=== PATIENT | male | born 1960 | race Caucasian/White ===

== ENCOUNTER 2024-01-08 14:43 | Inpatient (IN) | payer OTHER ==
[~2024-01-08] VITALS: Ht 170.2 cm; Wt 69.4 kg
[2024-01-08 14:30] VITALS: BP 129/78; TEMP 97.8; O2SAT 99
[2024-01-08] MEDS ORDERED: ENOX40DI SQ (15:22)
[2024-01-08] MEDS ORDERED: METF-494 PO (15:22)
[2024-01-08] MEDS ORDERED: ATOR40TA PO (15:22)
[2024-01-08] MEDS ORDERED: ONDANSETRON 4 MG/2 ML VIAL IV PRN (16:00)
[2024-01-08] MEDS ORDERED: ACETAMINOPHEN 325 MG TABLET PO PRN (16:00)
[2024-01-08] MEDS ORDERED: MAGNESIUM HYDROXIDE 30 ML LIQUID UDC PO PRN (16:00)
[2024-01-08] MEDS ORDERED: HYDROCODONE/APAP 5-325MG TABLET PO PRN (16:00)
[2024-01-08 20:14] VITALS: BP 122/72; TEMP 97.7; O2SAT 97
[2024-01-08] MEDS ORDERED: DEXTROSE 50% 50 ML DISP.SYRIN IV PRN (20:30)
[2024-01-08] MEDS: BLOOD SUGAR DIAGNOSTIC 1 EACH STRIP VI SCH (21:00)
[2024-01-08] MEDS: ATORVASTATIN 40 MG TABLET PO SCH (22:03)
[2024-01-08] MEDS: DOCUSATE SODIUM 100 MG CAPSULE PO SCH (22:03)
[2024-01-09] MEDS: HYDROCODONE/APAP 10-325 MG TABLET PO PRN (02:28)
[2024-01-09] MEDS ORDERED: ONDANSETRON 4 MG/2 ML VIAL IV PRN (05:15)
[2024-01-09 06:11] LABS: BASOPHILS # (AUTO) 0.1 K/UL (0.0-0.2); BASOPHILS % (AUTO) 1.2 % (0.0-2.0); EOSINOPHILS # (AUTO) 0.2 K/uL (0.0-0.7); EOSINOPHILS % (AUTO) 3.2 % (0.0-7.0); HEMATOCRIT 33.7 % (36.7-47.1); HEMOGLOBIN 11.9 g/dL (12.5-16.3); LYMPHOCYTES # (AUTO) 1.6 K/uL (0.8-4.8); LYMPHOCYTES % (AUTO) 23.9 % (20.5-51.5); MEAN CORPUSCULAR HEMOGLOBIN 32.3 uug (23.8-33.4); MEAN CORPUSCULAR HGB CONC 35 g/dL (32.5-36.3); MEAN CORPUSCULAR VOLUME 91.2 fL (73.0-96.2); MONOCYTES # (AUTO) 0.6 K/uL (0.1-1.30); MONOCYTES % (AUTO) 9.8 % (0.0-11.0); NEUTROPHILS # (AUTO) 4.1 K/uL (1.8-8.9); NEUTROPHILS % (AUTO) 61.9 % (38.5-71.5); PLATELET COUNT (AUTO) 342 K/uL (152-348); RED CELL DISTRIBUTION WIDTH 12.6 % (12.1-16.2); WHITE BLOOD COUNT (AUTO) 6.6 K/uL (3.6-10.2)
[2024-01-09 06:15] VITALS: BP 111/56; TEMP 97.6; O2SAT 98
[2024-01-09 06:25] LABS: CALCIUM 9.2 mg/dL (8.5-10.1); CREATININE 0.8 mg/dL (0.6-1.3); MAGNESIUM 1.9 mg/dL (1.8-2.4); PHOSPHOROUS 3.8 mg/dL (2.5-4.9); POTASSIUM 4.2 mmol/L (3.5-5.1)
[2024-01-09] MEDS: PANTOPRAZOLE SODIUM 40 MG TABLET.DR PO SCH (06:46)
[2024-01-09] MEDS: REMEDY ESSENTIAL ZINC PASTE 113 GM TP PRN (08:48)
[2024-01-09] MEDS: METFORMIN XR 500 MG TAB.SR.24H PO SCH (08:48)
[2024-01-09] MEDS: ENOXAPARIN SODIUM 40 MG/0.4 ML DISP.SYRIN SQ SCH (08:49)
[2024-01-09] MEDS ORDERED: ONDANSETRON ODT 4 MG TAB.RAPDIS SL PRN (10:00)
[2024-01-09] MEDS: INSULIN REGULAR, HUMAN 1000 UNIT/10 ML VIAL SQ PRN (11:12)
[2024-01-09 18:23] VITALS: BP 104/65; TEMP 97.6; O2SAT 97
[2024-01-09 19:00] VITALS: BP 129/73; TEMP 97.7; O2SAT 100
[2024-01-10 06:00] VITALS: BP 115/70; TEMP 97.9; O2SAT 97
[2024-01-10] MEDS: diphenhydrAMINE 25 MG CAP PO PRN (11:28)
[2024-01-10 15:03] VITALS: BP 128/77; TEMP 98.4; O2SAT 98
[2024-01-10] MEDS: OXYCODONE HCL 5 MG TABLET PO PRN (15:59)
[2024-01-10] MEDS ORDERED: OXYCODONE HCL 5 MG TABLET PO PRN (16:00)
[2024-01-10] MEDS: METHYL SALICYLATE/MENTHOL CREAM 28 GM TUBE TOP PRN (16:29)
[2024-01-10 19:55] VITALS: BP 103/58; TEMP 97.4; O2SAT 99
[2024-01-11] MEDS: ZOLPIDEM 5 MG TABLET PO PRN (02:06)
[2024-01-11 05:34] VITALS: BP 119/63; TEMP 97.9; O2SAT 97
[2024-01-11 07:45] LABS: CALCIUM 9.4 mg/dL (8.5-10.1); CREATININE 0.8 mg/dL (0.6-1.3); POTASSIUM 4.5 mmol/L (3.5-5.1)
[2024-01-11] MEDS: CARISOPRODOL 350 MG TABLET PO PRN (14:29)
[2024-01-11 16:09] VITALS: BP 100/51; TEMP 97.8; O2SAT 98
[2024-01-11 20:00] VITALS: TEMP 97.8
[2024-01-11] MEDS: OXYCODONE HCL 5 MG TABLET PO PRN (21:16)
[2024-01-12 06:00] VITALS: TEMP 97.5
[2024-01-12 16:31] VITALS: BP 100/69; TEMP 98.5; O2SAT 98
[2024-01-12] MEDS ORDERED: MELATONIN 3 MG TABLET PO SCH (20:15)
[2024-01-12 20:39] VITALS: BP 118/68; TEMP 98.4; O2SAT 98
[2024-01-12] MEDS: TRAZODONE 50 MG TABLET PO PRN (21:01)
[2024-01-13 15:18] VITALS: BP 108/71; TEMP 98; O2SAT 98
[2024-01-13] MEDS ORDERED: LIDOCAINE HCL 1% 20 ML VIAL IJ PRN (17:15)
[2024-01-13] MEDS ORDERED: TRAMADOL HCL 50 MG TABLET PO PRN (17:30)
[2024-01-13] MEDS: TRIAMCINOLONE ACETONIDE 40 MG/1 ML VIAL IM ONE (18:01)
[2024-01-13] MEDS: LIDOCAINE 5% PATCH TD SCH (19:07)
[2024-01-13 20:23] VITALS: BP 122/73; TEMP 97.7; O2SAT 96
[2024-01-14 15:10] VITALS: BP 120/73; TEMP 98.2; O2SAT 99
[2024-01-14 20:00] VITALS: BP 121/70; TEMP 98.5; O2SAT 98
[2024-01-15 04:30] VITALS: BP 118/71; TEMP 98.2
[2024-01-15 08:00] VITALS: BP 108/60; TEMP 97.5; O2SAT 98
[2024-01-15 16:04] VITALS: BP 114/65; TEMP 97.7; O2SAT 99
[2024-01-15 20:52] VITALS: BP 119/76; TEMP 97.8; O2SAT 97
[2024-01-15] MEDS: ZOLPIDEM 5 MG TABLET PO PRN (21:41)
[2024-01-16 06:15] VITALS: BP 134/80; TEMP 98.1; O2SAT 97
[2024-01-16 15:35] VITALS: BP 118/71; TEMP 98.5; O2SAT 98
[2024-01-16 20:09] VITALS: BP 114/74; TEMP 97.7; O2SAT 96
[2024-01-17 05:40] VITALS: BP 124/69; TEMP 97.6; O2SAT 97
[2024-01-17 08:49] LABS: BASOPHILS # (AUTO) 0.1 K/UL (0.0-0.2); BASOPHILS % (AUTO) 0.9 % (0.0-2.0); EOSINOPHILS # (AUTO) 0.1 K/uL (0.0-0.7); EOSINOPHILS % (AUTO) 1.6 % (0.0-7.0); HEMATOCRIT 33.9 % (36.7-47.1); HEMOGLOBIN 11.8 g/dL (12.5-16.3); LYMPHOCYTES # (AUTO) 1.4 K/uL (0.8-4.8); LYMPHOCYTES % (AUTO) 16.3 % (20.5-51.5); MEAN CORPUSCULAR HEMOGLOBIN 31.7 uug (23.8-33.4); MEAN CORPUSCULAR HGB CONC 35 g/dL (32.5-36.3); MONOCYTES # (AUTO) 0.6 K/uL (0.1-1.30); MONOCYTES % (AUTO) 7.3 % (0.0-11.0); NEUTROPHILS # (AUTO) 6.3 K/uL (1.8-8.9); NEUTROPHILS % (AUTO) 73.9 % (38.5-71.5); PLATELET COUNT (AUTO) 453 K/uL (152-348); RED BLOOD CELL COUNT(AUTO) 3.73 MIL/uL (4.06-5.63); RED CELL DISTRIBUTION WIDTH 12.9 % (12.1-16.2); WHITE BLOOD COUNT (AUTO) 8.5 K/uL (3.6-10.2)
[2024-01-17 08:53] LABS: DIFFERENTIAL COMMENT 1
[2024-01-17 08:58] LABS: CALCIUM 9.8 mg/dL (8.5-10.1); CREATININE 0.8 mg/dL (0.6-1.3); POTASSIUM 4.2 mmol/L (3.5-5.1)
[2024-01-17 16:00] VITALS: BP 99/57; TEMP 97.9; O2SAT 100
[2024-01-17 20:47] VITALS: BP 119/65; TEMP 98.4; O2SAT 98
[2024-01-18 15:29] VITALS: BP 115/67; TEMP 98.7; O2SAT 96
[2024-01-18 20:00] VITALS: BP_SYST 124; BP_SYST 135; BP_DIAS 49; BP_DIAS 70; TEMP 98.1; O2SAT 96
[2024-01-19 06:45] VITALS: BP 110/70; TEMP 98.1; O2SAT 96
[2024-01-19 16:23] VITALS: BP 111/67; TEMP 99.2; O2SAT 97
[2024-01-19 20:00] VITALS: BP 117/69; TEMP 98; O2SAT 99
[2024-01-20 16:21] VITALS: BP 115/66; TEMP 97.8; O2SAT 100
[2024-01-20 20:02] VITALS: BP 129/71; TEMP 97.9; O2SAT 96
[2024-01-20] MEDS: TEMAZEPAM 15 MG CAPSULE PO PRN (20:08)
[2024-01-21 06:54] VITALS: BP 106/61; TEMP 97.8; O2SAT 97
[2024-01-21 16:13] VITALS: BP 120/75; TEMP 97.8; O2SAT 99
[2024-01-21 19:40] VITALS: BP 116/72; TEMP 97.3; O2SAT 97
[2024-01-21] MEDS: ATORVASTATIN 20 MG TABLET PO SCH (20:15)
[2024-01-22 06:12] VITALS: BP 113/73; TEMP 98.2; O2SAT 98
== END 2024-01-22 12:15 | disposition home health service (06) | DRG 560 ==
PROVIDERS: ADMIT Physical Medicine & Rehabilitation Pain Medicine; ATTEND Physical Medicine & Rehabilitation Pain Medicine
DX: Z47.1 Aftercare following joint replacement surgery (principal); D62 Acute posthemorrhagic anemia; D68.59 Other primary thrombophilia; E46 Unspecified protein-calorie malnutrition; Z96.642 Presence of left artificial hip joint; S62.112D Displaced fracture of triquetrum [cuneiform] bone, left wrist, subsequent encounter for fracture with routine healing; W11.XXXD Fall on and from ladder, subsequent encounter; E11.65 Type 2 diabetes mellitus with hyperglycemia; E78.5 Hyperlipidemia, unspecified; K59.00 Constipation, unspecified; Z74.09 Other reduced mobility; Z79.4 Long term (current) use of insulin; Z79.84 Long term (current) use of oral hypoglycemic drugs; E86.0 Dehydration; F17.210 Nicotine dependence, cigarettes, uncomplicated; E66.01 Morbid (severe) obesity due to excess calories
CPT/HCPCS: 36415; 72100; 73030; 73501; 83735; 84100; 85025; 97535-GO-CO; A4663; J1650; J1815; Q0162; Q0163